=== PATIENT | female | born 1945 | race Caucasian/White ===

== ENCOUNTER 2019-06-15 15:07 | Outpatient (CLI) | payer MEDICARE | END 2019-06-15 15:08 | disposition home or self-care (01) | LOC: COV 15:07 | PROVIDERS: ATTEND Family Medicine | DX: R05 Cough (principal) | CPT/HCPCS: 81599 ==

== ENCOUNTER 2019-12-08 02:23 | Outpatient (CLI) | payer MEDICARE | END 2019-12-08 02:24 | disposition critical access hospital (66) | LOC: EMS 02:23 | PROVIDERS: ATTEND Surgery | DX: R07.89 Other chest pain (principal) | CPT/HCPCS: A0425; A0427 ==

== ENCOUNTER 2019-12-08 02:51 | Emergency (ER) | payer MEDICARE ==
--- NOTE | 2019-12-08 03:08 | ED Physician Documentation ---
PD HPI CHEST PAIN - Stated complaint Stated Complaint: CP - Chief complaint Chief Complaint: Cardiac - History obtained from History obtained from: Patient, EMS - History of Present Illness Timing - onset: Enter time (18:00), Today Timing - onset during: Exertion Timing - duration: Hours Timing - details: Intermittant Pain level max: 7 Pain level now: 1 Quality: Pain Location: Substernal Radiation: Jaw, Neck, Back Improved by: Rest, Nitro Worsened by: Exertion Associated symptoms: Nausea. No: Shortness of air, Diaphoresis, Vomiting, Feeling faint / dizzy Similar symptoms before: Has not had sx before Recently seen: Not recently seen - Additional information Additional information: BIBA. patient c/o episodic midline lower chest pain since this morning. Pain radiates to neck, jaw, and upper back. She has not had this before. She initially attributed the symptoms to some gardening she was doing, and the pain was episodic for most of the day, with distinct worsening with exertion, resolution with rest, and mild nausea but no vomiting , no dyspnea. The episodes became more frequent, onset with less exertion, and taking longer to resolve with rest. At 6 pm , the pain persisted even with rest. She eventually called an ambulance and is thus brought here via EMS. She was given SLNTG, 324mg ASA, and 1 inch NTG paste to ACW; pain decreased from seven (out of ten) to 1 en route. Review of Systems Constitutional: denies: Fever, Chills, Sweats Eyes: reports: Reviewed and negative Ears: reports: Reviewed and negative Nose: reports: Reviewed and negative Throat: reports: Reviewed and negative Cardiac: reports: Chest pain / pressure. denies: Palpitations, Pedal edema, Calf pain Respiratory: denies: Dyspnea, Cough GI: reports: Nausea. denies: Abdominal Pain, Vomiting : reports: Reviewed and negative Skin: reports: Reviewed and negative Musculoskeletal: reports: Reviewed and negative Neurologic: reports: Reviewed and negative PD PAST MEDICAL HISTORY - Past Medical History Cardiovascular: Hypertension - Past Surgical History Past Surgical History: Yes - Present Medications Home Medications: Ambulatory Orders Medication Instructions Recorded Confirmed Aspirin [Aspir 81] 81 mg PO DAILY 09/02/13 09/05/14 Hydrochlorothiazide 25 mg PO DAILY 09/02/13 09/05/14 lisinopriL [Lisinopril] 40 mg PO DAILY 09/02/13 09/05/14 Oxycodone HCl/Acetaminophen 1 - 2 each PO Q6H PRN #15 tablet 09/05/14 [Percocet 5-325 mg Tablet] - Allergies Allergies/Adverse Reactions: Allergies Allergy/AdvReac Type Severity Reaction Status Date / Time No Known Drug Allergies Allergy Verified 12/08/19 03:08 - Social History Does the pt smoke?: No Smoking Status: Never smoker Does the pt drink ETOH?: No Does the pt have substance abuse?: No - Immunizations Immunizations are current?: Yes - POLST Patient has POLST: No PD ED PE NORMAL - Vitals Vital signs reviewed: Yes - General General: Alert and oriented X 3, No acute distress, Well developed/nourished - HEENT HEENT: Moist mucous membranes - Neck Neck: Supple, no meningeal sign - Cardiac Cardiac: RRR, No murmur, No gallop, No rub - Respiratory Respiratory: No respiratory distress, Clear bilaterally - Abdomen Abdomen: Soft, Non tender - Back Back: No CVA TTP - Derm Derm: Normal color, Warm and dry - Extremities Extremities: No edema - Neuro Neuro: Alert and oriented X 3 Results - Vitals Vitals: Vital Signs - 24 hr 12/08/19 12/08/19 12/08/19 02:52 03:01 03:31 Temperature 36.7 C Heart Rate 96 99 86 Respiratory 17 20 12 Rate Blood Pressure 126/84 H 122/77 112/82 H O2 Saturation 97 97 99 12/08/19 12/08/19 12/08/19 04:01 04:30 05:00 Temperature Heart Rate 91 93 88 Respiratory 12 13 13 Rate Blood Pressure 129/86 H 129/73 120/73 O2 Saturation 99 95 99 12/08/19 12/08/19 12/08/19 05:30 06:00 07:00 Temperature Heart Rate 90 92 105 H Respiratory 22 14 19 Rate Blood Pressure 118/86 H 116/74 122/72 O2 Saturation 97 96 99 12/08/19 07:30 Temperature Heart Rate 84 Respiratory 18 Rate Blood Pressure 101/69 O2 Saturation 99 Oxygen O2 Source Room air - EKG (time done) No standard instances Rate: Rate (enter#) (96) Rhythm: NSR [place]: Normal Intervals: Normal [place] QRS: Normal Ischemia: Non specific changes (V5-V6) - Labs Labs: Laboratory Tests 12/08/19 12/08/19 12/08/19 03:00 03:00 03:00 WBC 8.7 RBC 4.67 Hgb 13.6 Hct 42.4 MCV 90.8 MCH 29.1 MCHC 32.1 RDW 13.2 Plt Count 236 MPV 8.9 Neut # (Auto) 5.9 Lymph # (Auto) 1.8 [place] # (Auto) 0.8 Eos # (Auto) 0.1 Baso # (Auto) 0.1 Absolute Nucleated RBC 0.00 Nucleated RBC % 0.0 Anti-Xa Level Sodium 140 Potassium 3.3 L Chloride 105 Carbon Dioxide 27 Anion Gap 8.0 BUN 22 H Creatinine 0.9 Estimated GFR (MDRD) 61 L Glucose 126 H Calcium 8.8 Total Bilirubin 0.7 AST 23 ALT 18 Alkaline Phosphatase 76 Troponin I High Sens 1688.0 H* Total Protein 5.9 L Albumin 3.5 Globulin 2.4 Albumin/Globulin Ratio 1.5 Lipase 25 12/08/19 12/08/19 05:40 05:40 WBC RBC Hgb Hct MCV MCH MCHC RDW Plt Count MPV Neut # (Auto) Lymph # (Auto) [place] # (Auto) Eos # (Auto) Baso # (Auto) Absolute Nucleated RBC Nucleated RBC % Anti-Xa Level 0.1 Sodium Potassium Chloride Carbon Dioxide Anion Gap BUN Creatinine Estimated GFR (MDRD) Glucose Calcium Total Bilirubin AST ALT Alkaline Phosphatase Troponin I High Sens 3112.8 H* Total Protein Albumin Globulin Albumin/Globulin Ratio Lipase - Rads (name of study) chest xray Radiology: Prelim report reviewed, See rad report PD MEDICAL DECISION MAKING - ED course Complexity details: reviewed old records, reviewed results, re-evaluated patient, considered differential, d/w patient ED course: HPI is c/w new onset angina. no acute EKG changes (specifically no ST elevations; minimal/borderline ST depression V5-V6). high sensitivity troponin 1688. Although her pain was mild during ED stay, it did wax and wane at times, further concerning for new onset/unstable angina. D/W on-call physician for [facility]. She subsequently called me back and says there are no beds available at [facility] and says patient can be transferred to nearest appropriate facility. [facility] contacted; no beds available. [facility] contacted; no beds available. I then recontacted the on-call physician at [facility]. She subsequently called [facility] and [facility] and then called me back; beds are not available at either of these facilities. She recommends ED to ED transfer to nearest appropriate facility. I subsequently spoke to the transfer center at [facility] transfer [place]. He relays to me that no beds are available but he will contact the mine technician at [facility] to consider possible transfer. I then spoke with the ED physician at [facility], Dr. Mendoza; he accepts ED to ED transfer. I subsequently spoke to immigration officer physician for [facility] (they had undergone shift change and I d/w Dr. Smith) to update that patient was accepted for ED/ED transfer and he acknowledges. I then spoke with Dr. Richardson, immigration officer cardiology for [facility], agrees patient is appropriate for transfer to [facility]; he recommends beta-eduar and thus I ordered 5mg IV lopressor. I then heard back from [facility]; I informed them that patient was now dispositioned to [facility]. Departure - Departure Disposition: 02 Transfer Acute Care Hosp Clinical Impression: Unstable angina Condition: Stable Discharge Date/Time: 12/08/19 07:50
[2019-12-08 03:12] LABS: BASOPHILS # (AUTO) 0.1 10^3/uL (0.0-0.1); BASOPHILS % (AUTO) 0.8 %; EOSINOPHILS # (AUTO) 0.1 10^3/uL (0.0-0.7); HGB - HEMOGLOBIN 13.6 g/dL (12.0-16.0); LYMPHOCYTES # (AUTO) 1.8 10^3/uL (1.5-3.5); MEAN CORPUSCULAR HEMOGLOBIN 29.1 pg (27.0-31.0); MEAN CORPUSCULAR HGB CONC 32.1 g/dL (32.0-36.0); MEAN CORPUSCULAR VOLUME 90.8 fL (81.0-99.0); MEAN PLATELET VOLUME 8.9 fL (7.9-10.8); MONOCYTES # (AUTO) 0.8 10^3/uL (0.0-1.0); MONOCYTES % (AUTO) 9.3 %; NEUTROPHILS # (AUTO) 5.9 10^3/uL (1.5-6.6); NEUTROPHILS % (AUTO) 67.6 %; PLT - PLATELET COUNT 236 10^3/uL (130-450); RED BLOOD COUNT 4.67 10^6/uL (4.20-5.40); RED CELL DISTRIBUTION WIDTH 13.2 % (12.0-15.0); WHITE BLOOD COUNT 8.7 x10^3/uL (4.8-10.8)
[2019-12-08] MEDS ORDERED: SODIUM CHLORIDE 0.9% 1,000 ML IV STA (03:17)
[2019-12-08 03:32] LABS: ALBUMIN 3.5 g/dL (3.2-5.5); ALBUMIN/GLOBULIN RATIO 1.5 (1.0-2.2); BILIRUBIN,TOTAL 0.7 mg/dL (0.2-1.0); CALCIUM 8.8 mg/dL (8.5-10.3); CREATININE 0.9 mg/dL (0.4-1.0); TOTAL PROTEIN 5.9 g/dL (6.7-8.2)
[2019-12-08] MEDS ORDERED: HEPARIN 25000UNITS/500ML (D5W) 25,000 UNIT/500 ML BAG IV STA (05:27)
[2019-12-08] MEDS ORDERED: MORPHINE 2 MG/ML CARPUJECT IVP STA (05:39)
[2019-12-08] MEDS ORDERED: METOPROLOL 5 MG/5 ML VIAL IVP STA (06:37)
[2019-12-08 07:40] VITALS: BP 101/69
--- NOTE | 2019-12-08 07:48 | XRAY Report ---
PROCEDURE: Chest 1 View X-Ray INDICATIONS: Chest pain TECHNIQUE: One view of the chest was acquired. COMPARISON: None FINDINGS: Surgical changes and devices: None. Lungs and pleura: No pleural effusions or pneumothorax. Lungs are clear. Mediastinum: Mediastinal contours appear normal. Heart size is normal. Bones and chest wall: No suspicious bony lesions. Overlying soft tissues appear unremarkable. IMPRESSION: No acute cardiopulmonary disease process. Reviewed by: Kym Funez MD, PhD on 12/08/2019 7:47 AM PDT Approved by: Kym Funez MD, PhD on 12/08/2019 7:47 AM PDT Station ID: [id number]
== END 2019-12-08 07:50 | disposition short-term general hospital (02) ==
LOC: EDUNIT# → ED 02:51
DX: I20.0 Unstable angina (principal); I49.3 Ventricular premature depolarization; I10 Essential (primary) hypertension; R79.89 Other specified abnormal findings of blood chemistry; Z79.82 Long term (current) use of aspirin
CPT/HCPCS: 36415; 71045; 80053; 83690; 84484; 85025; 85520; 93005; 96374; 96375; 99284

== ENCOUNTER 2019-12-08 07:53 | Outpatient (CLI) | payer MEDICARE | END 2019-12-08 07:54 | disposition short-term general hospital (02) | LOC: EMS 07:53 | PROVIDERS: ATTEND Surgery | DX: I21.4 Non-ST elevation (NSTEMI) myocardial infarction (principal) | CPT/HCPCS: A0425; A0426 ==

== ENCOUNTER 2020-07-24 08:41 | Outpatient (CLI) | payer MEDICARE ==
[2020-07-24 15:41] LABS: CHOL/HDL RATIO 2.6 (<4.4); CHOLESTEROL 159 mg/dL; HDL CHOLESTEROL 62 mg/dL; LDL CHOLESTEROL,CALCULATED 80 mg/dL; LDL/HDL RATIO 1.3 (<4.4); TRIGLYCERIDES 86 mg/dL; VLDL CHOLESTEROL 17 mg/dL
== END 2020-07-24 08:42 | disposition home or self-care (01) ==
LOC: LAB.S 08:41
PROVIDERS: ATTEND Internal Medicine Interventional Cardiology
DX: E78.5 Hyperlipidemia, unspecified (principal)
CPT/HCPCS: 36415; 80061; 83721

== ENCOUNTER 2020-08-02 09:50 | Outpatient (CLI) | payer MEDICARE ==
[2020-08-02 15:28] LABS: CALCIUM 9.3 mg/dL (8.5-10.3); CREATININE 0.7 mg/dL (0.4-1.0)
== END 2020-08-02 09:51 | disposition home or self-care (01) ==
LOC: LAB.S 09:50
PROVIDERS: ATTEND Internal Medicine Interventional Cardiology
DX: I50.1 Left ventricular failure, unspecified (principal); E78.5 Hyperlipidemia, unspecified; I25.10 Atherosclerotic heart disease of native coronary artery without angina pectoris
CPT/HCPCS: 36415; 80048

== ENCOUNTER 2020-10-15 15:03 | Emergency (ER) | payer MEDICARE ==
[2020-10-15 15:20] VITALS: BP 148/86
[2020-10-15 15:40] LABS: BASOPHILS # (AUTO) 0.1 10^3/uL (0.0-0.1); EOSINOPHILS # (AUTO) 0.1 10^3/uL (0.0-0.7); EOSINOPHILS % (AUTO) 1.4 %; HCT - HEMATOCRIT 42.3 % (37.0-47.0); HGB - HEMOGLOBIN 13.6 g/dL (12.0-16.0); LYMPHOCYTES # (AUTO) 1.5 10^3/uL (1.5-3.5); LYMPHOCYTES % (AUTO) 23.6 %; MEAN CORPUSCULAR HEMOGLOBIN 30.3 pg (27.0-31.0); MEAN CORPUSCULAR HGB CONC 32.2 g/dL (32.0-36.0); MEAN CORPUSCULAR VOLUME 94.2 fL (81.0-99.0); MEAN PLATELET VOLUME 8.7 fL (7.9-10.8); MONOCYTES # (AUTO) 0.5 10^3/uL (0.0-1.0); MONOCYTES % (AUTO) 8.6 %; NEUTROPHILS # (AUTO) 4.1 10^3/uL (1.5-6.6); NEUTROPHILS % (AUTO) 65.2 %; PLT - PLATELET COUNT 231 10^3/uL (130-450); RED BLOOD COUNT 4.49 10^6/uL (4.20-5.40); RED CELL DISTRIBUTION WIDTH 14.6 % (12.0-15.0); WHITE BLOOD COUNT 6.3 x10^3/uL (4.8-10.8)
[2020-10-15 15:47] LABS: INR 1.1 (0.8-1.2); PT - PROTHROMBIN TIME 12.4 secs (9.9-12.6)
[2020-10-15 15:53] LABS: ALBUMIN 4.1 g/dL (3.2-5.5); ALBUMIN/GLOBULIN RATIO 1.7 (1.0-2.2); BILIRUBIN,TOTAL 0.7 mg/dL (0.2-1.0); CALCIUM 9.3 mg/dL (8.5-10.3); CREATININE 0.7 mg/dL (0.4-1.0); POTASSIUM 3.9 mmol/L (3.5-5.0); TOTAL PROTEIN 6.5 g/dL (6.7-8.2)
[2020-10-15] MEDS: TRANEXAMIC ACID 1,000 MG/10 ML VIAL NAS STA (15:53)
--- NOTE | 2020-10-15 15:53 | ED Physician Documentation ---
History of Present Illness - Stated complaint Stated Complaint: BLEEDING GUMS - Chief complaint Chief Complaint: Heent - History obtained from History obtained from: Patient - History of Present Illness Timing: How many days ago (2) Pain level max: 0 Pain level now: 0 - Additonal information Additional information: 74-year-old female states that she has bleeding to her gum above her right frontal tooth. This is been intermittent for the past 2 days. Stops with pressure and then begins again. She is on aspirin 162 mg p.o. daily. Denies any other blood thinners. No dental pain. No facial swelling. Denies any trauma. Nothing makes it worse. Review of Systems Constitutional: denies: Fever, Chills GI: denies: Vomiting, Diarrhea Skin: denies: Rash Musculoskeletal: denies: Neck pain, Back pain PD PAST MEDICAL HISTORY - Past Medical History Cardiovascular: Hypertension - Past Surgical History Past Surgical History: Yes - Present Medications Home Medications: Ambulatory Orders Medication Instructions Recorded Confirmed Aspirin [Aspir 81] 81 mg PO DAILY 09/02/13 09/05/14 hydroCHLOROthiazide 25 mg PO DAILY 09/02/13 09/05/14 [Hydrochlorothiazide] lisinopriL [Lisinopril] 40 mg PO DAILY 09/02/13 09/05/14 Oxycodone HCl/Acetaminophen 1 - 2 each PO Q6H PRN #15 tablet 09/05/14 [Percocet 5-325 mg Tablet] - Allergies Allergies/Adverse Reactions: Allergies Allergy/AdvReac Type Severity Reaction Status Date / Time No Known Drug Allergies Allergy Verified 10/15/20 15:20 - Social History Does the pt smoke?: No Smoking Status: Never smoker Does the pt drink ETOH?: No Does the pt have substance abuse?: No - Immunizations Immunizations are current?: Yes - POLST Patient has POLST: No PD ED PE NORMAL - Vitals Vital signs reviewed: Yes - General General: Alert and oriented X 3, No acute distress - Derm Derm: Warm and dry, No rash, Other (No petechiae or bruising) - Neuro Neuro: Alert and oriented X 3 PD ED PE EXPANDED - HEENT HEENT Visual: 1 - bruising (Slight bleeding. No evidence of trauma. No loosening of the tooth. No pain. No gingival swelling) Results - Vitals Vitals: Vital Signs - 24 hr 10/15/20 15:15 Temperature 36.9 C Heart Rate 73 Respiratory 16 Rate Blood Pressure 148/86 H O2 Saturation 97 Oxygen O2 Source Room air - Labs Labs: Laboratory Tests 10/15/20 10/15/20 10/15/20 15:34 15:34 15:34 WBC 6.3 RBC 4.49 Hgb 13.6 Hct 42.3 MCV 94.2 MCH 30.3 MCHC 32.2 RDW 14.6 Plt Count 231 MPV 8.7 Neut # (Auto) 4.1 Lymph # (Auto) 1.5 [place] # (Auto) 0.5 Eos # (Auto) 0.1 Baso # (Auto) 0.1 Absolute Nucleated RBC 0.00 Nucleated RBC % 0.0 PT 12.4 INR 1.1 APTT 32.0 Sodium 140 Potassium 3.9 Chloride 103 Carbon Dioxide 28 Anion Gap 9.0 BUN 21 H Creatinine 0.7 Estimated GFR (MDRD) 81 L Glucose 104 H Calcium 9.3 Total Bilirubin 0.7 AST 22 ALT 28 Alkaline Phosphatase 96 Total Protein 6.5 L Albumin 4.1 Globulin 2.4 Albumin/Globulin Ratio 1.7 PD MEDICAL DECISION MAKING - ED course Complexity details: reviewed results, considered differential, d/w patient ED course: Unclear etiology of the bleeding. It resolved with topical TXA. It is just above tooth #8. No other bleeding in the mouth. No significant lab abnormalities. She has an appointment with her dentist tomorrow. We will have her follow-up with her dentist for further care. Patient counseled regarding signs and symptoms for which I believe and urgent re-evaluation would be necessary. Patient with good understanding of and agreement to plan and is comfortable going home at this time This document was made in part using voice recognition software. While efforts are made to proofread this document, sound alike and grammatical errors may occur. Departure - Departure Disposition: 01 Home, Self Care Clinical Impression: Bleeding gums Condition: Good Instructions: Gingivitis Follow-Up: Wilfrid Salinas MD [Primary Care Provider] - Comments: Follow-up with your dentist tomorrow for further evaluation. The cause of your symptoms is unclear. Your blood testing is normal today. If the bleeding continues, hold pressure until it resolves. Discharge Date/Time: 10/15/20 16:56
== END 2020-10-15 16:56 | disposition home or self-care (01) ==
LOC: ED 15:03
DX: K06.8 Other specified disorders of gingiva and edentulous alveolar ridge (principal); Z79.82 Long term (current) use of aspirin
CPT/HCPCS: 36415; 80053; 85025; 85610; 85730; 99283

== ENCOUNTER 2020-10-18 09:39 | Outpatient (CLI) | payer MEDICARE ==
--- NOTE | 2020-10-18 14:02 | DEXA Report ---
PROCEDURE: Dexa Spine and/or Hip INDICATIONS: OSTEOPOROSIS SCREENING TECHNIQUE: Dual energy x-ray absorptiometry (DXA) was performed on a Net[employer] System. Regions measur ed are the AP Spine, femoral neck, and if needed forearm. COMPARISON: None. FINDINGS: Lumbar Spine: Bone Mineral Density 1.198 g/cm/cm,T score 0.2, normal Left Hip: Bone Mineral Density 0.682 g/cm/cm,T score -2.6, osteochondrosis Left Femoral Neck: Bone Mineral Density 0.691 g/cm/cm, T score 2.5, osteoporosis (T score greater or equal to -1.0: NORMAL) (T score from -1.1 to -2.4: OSTEOPENIA) (T score less than or equal to -2.5 to: OSTEOPOROSIS) Impression: Osteoporosis within left hip and femoral neck. Patients with diagnosis of osteoporosis or osteopenia should have regular bone mineral density assess ment. For those eligible for Medicare, routine testing is allowed once every 2 years. Testing frequ ency can be increased for patients who have rapidly progressing disease or for those who are receivin g medical therapy to restore bone mass. Reviewed by: Moraima Mejia MD on 10/18/2020 2:00 PM PDT Approved by: Moraima Mejia MD on 10/18/2020 2:00 PM PDT Station ID: [id number]
== END 2020-10-18 09:40 | disposition home or self-care (01) ==
LOC: DI 09:39
PROVIDERS: ATTEND Internal Medicine
DX: Z13.820 Encounter for screening for osteoporosis (principal); M81.0 Age-related osteoporosis without current pathological fracture

== ENCOUNTER 2021-10-03 12:59 | Outpatient (CLI) | payer MEDICARE ==
[2021-10-03 15:19] LABS: CALCIUM 9.7 mg/dL (8.5-10.3); CREATININE 0.7 mg/dL (0.4-1.0); POTASSIUM 4.5 mmol/L (3.5-5.0)
== END 2021-10-03 13:00 | disposition home or self-care (01) ==
LOC: LAB.S 12:59
PROVIDERS: ATTEND Internal Medicine Interventional Cardiology
DX: I50.1 Left ventricular failure, unspecified (principal)
CPT/HCPCS: 36415; 80048

== ENCOUNTER 2021-11-07 11:52 | Outpatient (CLI) | payer MEDICARE | END 2021-11-07 11:53 | disposition home or self-care (01) | LOC: LAB.S 11:52 | PROVIDERS: ATTEND Ophthalmology | DX: R51.9 Headache, unspecified (principal) | CPT/HCPCS: 36415; 85651; 86140 ==

== ENCOUNTER 2022-10-28 07:23 | Emergency (ER) | payer MEDICARE ==
[2022-10-28] MEDS ORDERED: SODIUM CHLORIDE 0.9% 500 ML IV STA (08:02)
[2022-10-28 08:11] LABS: BASOPHILS # (AUTO) 0.1 10^3/uL (0.0-0.1); BASOPHILS % (AUTO) 0.7 %; EOSINOPHILS # (AUTO) 0.1 10^3/uL (0.0-0.7); EOSINOPHILS % (AUTO) 1.6 %; HCT - HEMATOCRIT 46.2 % (37.0-47.0); HGB - HEMOGLOBIN 14.6 g/dL (12.0-16.0); LYMPHOCYTES % (AUTO) 11.2 %; MEAN CORPUSCULAR HEMOGLOBIN 29.4 pg (27.0-31.0); MEAN CORPUSCULAR HGB CONC 31.6 g/dL (32.0-36.0); MEAN CORPUSCULAR VOLUME 93.1 fL (81.0-99.0); MEAN PLATELET VOLUME 8.9 fL (7.9-10.8); MONOCYTES # (AUTO) 0.6 10^3/uL (0.0-1.0); MONOCYTES % (AUTO) 6.7 %; NEUTROPHILS # (AUTO) 7.2 10^3/uL (1.5-6.6); NEUTROPHILS % (AUTO) 79.6 %; PLT - PLATELET COUNT 242 10^3/uL (130-450); RED BLOOD COUNT 4.96 10^6/uL (4.20-5.40); RED CELL DISTRIBUTION WIDTH 13.6 % (12.0-15.0)
[2022-10-28 08:26] LABS: ALBUMIN 3.9 g/dL (3.2-5.5); ALBUMIN/GLOBULIN RATIO 1.6 (1.0-2.2); BILIRUBIN,TOTAL 0.7 mg/dL (0.2-1.0); CALCIUM 9.7 mg/dL (8.5-10.3); CREATININE 0.7 mg/dL (0.6-1.3); POTASSIUM 3.9 mmol/L (3.5-4.5); TOTAL PROTEIN 6.3 g/dL (6.4-8.9)
--- NOTE | 2022-10-28 08:47 | XRAY Report ---
PROCEDURE: Chest 1 View X-Ray INDICATIONS: weakness/falls TECHNIQUE: One view of the chest was acquired. COMPARISON: Chest x-ray 12/08/2019 FINDINGS: Surgical changes and devices: Sternal wires. Lungs and pleura: No pleural effusions or pneumothorax. Lungs are clear. Lungs are hyperinflated with flattening of the diaphragms, suggestive of COPD. Mediastinum: Mediastinal contours appear normal. Heart size is normal. Bones and chest wall: No suspicious bony lesions. Overlying soft tissues appear unremarkable. IMPRESSION: No acute cardiopulmonary process. Reviewed by: Moraima Mejia MD on 10/28/2022 8:46 AM PDT Approved by: Moraima Mejia MD on 10/28/2022 8:46 AM PDT Station ID: [id number]
--- NOTE | 2022-10-28 09:01 | CT Report ---
PROCEDURE: HEAD WO INDICATIONS: falls/head injury TECHNIQUE: Noncontrast 4.5 mm thick angled axial sections acquired from the foramen magnum to the vertex. For r adiation dose reduction, the following was used: automated exposure control, adjustment of mA and/or kV according to patient size. COMPARISON: None. FINDINGS: Image quality: Excellent. The ventricular system and cortical sulci demonstrate atrophy, consistent for patient's stated age. There are areas of hypodensity in the periventricular and subcortical white matter. There is no acut e intra or extra-axial fluid collection. No acute hemorrhage, mass lesion or midline shift. Brainst em is unremarkable. Globes are symmetrical. Sinuses are aerated. Osseous structures are intact. IMPRESSION: 1. No acute intracranial process. 2. Mild to moderate atrophy and chronic microvascular ischemic changes. Reviewed by: Moraima Mejia MD on 10/28/2022 8:59 AM PDT Approved by: Moraima Mejia MD on 10/28/2022 8:59 AM PDT Station ID: [id number]
[2022-10-28] MEDS ORDERED: MECLIZINE 12.5 MG TABLET PO STA (10:33)
--- NOTE | 2022-10-28 10:42 | ED Physician Documentation ---
History of Present Illness - Stated complaint Stated Complaint: GLF,BODY PX - Chief complaint Chief Complaint: Neuro - History obtained from History obtained from: Patient - Additonal information Additional information: Patient is a 76-year-old female with a history of disembarkment syndrome presenting for evaluation of feeling dizziness since this weekend with worsening symptoms this morning causing several falls. Patient states that she feels like she is losing her balance Causing her to fall 3 times today when standing. She denies feeling lightheaded. She describes her feelings as being on a boat. She denies a headache. She has hit her head twice. No LOC. Does not take a blood thinner. She reports in the past when she had disembarkment syndrome She went to physical therapy where they performed the Valarie maneuver which helped with her symptoms. She was never put on medications for it. She does report recent feelings of fatigue, subjective fever, congestion. Denies dysuria. Denies chest pain or shortness of air. She has reported some discomfort in the left buttock since the weekend and saw her primary care provider yesterday who examined her for the pain as well as the dizziness. PCP did not feel that it was her hip that was bothering her was considering giving her a course of steroids for presumed pinched nerve. Labs were also ordered but patient fell this morning prior to being able to get her labs done. She reports being able to ambulate with a walker. Review of Systems Constitutional: denies: Fever Cardiac: denies: Chest pain / pressure Respiratory: denies: Dyspnea GI: denies: Abdominal Pain Neurologic: reports: Generalized weakness, Head injury PD PAST MEDICAL HISTORY - Past Medical History Cardiovascular: Hypertension - Past Surgical History Past Surgical History: Yes - Present Medications Home Medications: Ambulatory Orders Medication Instructions Recorded Confirmed Aspirin [Aspir 81] 81 mg PO DAILY 09/02/13 09/05/14 hydroCHLOROthiazide 25 mg PO DAILY 09/02/13 09/05/14 [Hydrochlorothiazide] lisinopriL [Lisinopril] 40 mg PO DAILY 09/02/13 09/05/14 Oxycodone HCl/Acetaminophen 1 - 2 each PO Q6H PRN #15 tablet 09/05/14 [Percocet 5-325 mg Tablet] Meclizine HCl [Motion Sickness] 25 mg PO Q6H PRN #20 tablet 10/28/22 Ondansetron Odt [Zofran] 4 mg TL Q6H PRN #10 tablet 10/28/22 - Allergies Allergies/Adverse Reactions: Allergies Allergy/AdvReac Type Severity Reaction Status Date / Time No Known Drug Allergies Allergy Verified 10/28/22 07:43 - Social History Does the pt smoke?: No Smoking Status: Never smoker Does the pt drink ETOH?: No Does the pt have substance abuse?: No - Immunizations Immunizations are current?: Yes - POLST Patient has POLST: No PD ED PE NORMAL - General General: Alert and oriented X 3, No acute distress, Well developed/nourished - HEENT HEENT: Atraumatic, PERRL, EOMI, Moist mucous membranes, Pharynx benign, Other (No nystagmus at rest. 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, No motor deficit, No sensory deficit, Normal speech, Other (Normal [id number] bilaterally) Results - Vitals Vitals: Vital Signs - 24 hr 10/28/22 10/28/22 10/28/22 09:49 10:11 11:00 Temperature 36.8 C 36.9 C Heart Rate 70 73 Heart Rate [ 78 Sitting] Heart Rate [ 85 Standing] Heart Rate [ 72 Supine] Respiratory 12 18 Rate Blood Pressure 166/75 H 160/78 H Blood Pressure 171/88 H [Sitting] Blood Pressure 153/95 H [Standing] Blood Pressure 160/68 H [Supine] O2 Saturation 97 100 Oxygen O2 Source Room air - EKG (time done) 0810 EKG releavant findings:: EKG personally interpreted by author of this note. Relevant findings are: Rate 74, normal sinus rhythm, motion artifact in V5 and V6 but no STEMI Rate: Rate (enter#) (74) Rhythm: NSR Ischemia: No: ST elevation c/w ischemia - Labs Labs: Laboratory Tests 10/28/22 10/28/22 10/28/22 08:06 08:06 09:45 WBC 9.0 RBC 4.96 Hgb 14.6 Hct 46.2 MCV 93.1 MCH 29.4 MCHC 31.6 L RDW 13.6 Plt Count 242 MPV 8.9 Neut # (Auto) 7.2 H Lymph # (Auto) 1.0 L [place] # (Auto) 0.6 Eos # (Auto) 0.1 Baso # (Auto) 0.1 Absolute Nucleated RBC 0.00 Nucleated RBC % 0.0 Sodium 140 Potassium 3.9 Chloride 105 Carbon Dioxide 32 Anion Gap 3.0 L BUN 13 Creatinine 0.7 Estimated GFR (MDRD) 81 L Glucose 105 H Calcium 9.7 Total Bilirubin 0.7 AST 18 ALT 16 Alkaline Phosphatase 94 Total Protein 6.3 L Albumin 3.9 Globulin 2.4 Albumin/Globulin Ratio 1.6 Lipase 19 Urine Color Urine Clarity Urine pH Ur Specific [place] Urine Protein Urine Glucose (UA) Urine Ketones Urine Occult Blood Urine Nitrite Urine Bilirubin Urine Urobilinogen Ur Leukocyte Esterase Ur Microscopic Review Urine Culture Comments Nasal Adenovirus (PCR) NOT DETECTED Nasal B. parapertussis DNA (PCR) NOT DETECTED Nasal Coronavir 229E PCR NOT DETECTED Nasal Coronavir HKU1 PCR NOT DETECTED Nasal Coronavir NL63 PCR NOT DETECTED Nasal Coronavir OC43 PCR NOT DETECTED Nasal Enterovir/Rhinovir PCR NOT DETECTED Nasal Influenza B PCR NOT DETECTED Nasal Influenza A PCR NOT DETECTED Nasal Parainfluen 1 PCR NOT DETECTED Nasal Parainfluen 2 PCR NOT DETECTED Nasal Parainfluen 3 PCR NOT DETECTED Nasal Parainfluen 4 PCR NOT DETECTED Nasal RSV (PCR) NOT DETECTED Nasal B.pertussis DNA PCR NOT DETECTED Nasal C.pneumoniae (PCR) NOT DETECTED Alberto Human Metapneumo PCR NOT DETECTED Nasal M.pneumoniae (PCR) NOT DETECTED Nasal SARS-CoV-2 (PCR) NOT DETECTED 10/28/22 10:15 WBC RBC Hgb Hct MCV MCH MCHC RDW Plt Count MPV Neut # (Auto) Lymph # (Auto) [place] # (Auto) Eos # (Auto) Baso # (Auto) Absolute Nucleated RBC Nucleated RBC % Sodium Potassium Chloride Carbon Dioxide Anion Gap BUN Creatinine Estimated GFR (MDRD) Glucose Calcium Total Bilirubin AST ALT Alkaline Phosphatase Total Protein Albumin Globulin Albumin/Globulin Ratio Lipase Urine Color YELLOW Urine Clarity CLEAR Urine pH 7.0 Ur Specific [place] 1.010 Urine Protein NEGATIVE Urine Glucose (UA) NEGATIVE Urine Ketones NEGATIVE Urine Occult Blood NEGATIVE Urine Nitrite NEGATIVE Urine Bilirubin NEGATIVE Urine Urobilinogen 0.2 (NORMAL) Ur Leukocyte Esterase NEGATIVE Ur Microscopic Review NOT INDICATED Urine Culture Comments NOT INDICATED Nasal Adenovirus (PCR) Nasal B. parapertussis DNA (PCR) Nasal Coronavir 229E PCR Nasal Coronavir HKU1 PCR Nasal Coronavir NL63 PCR Nasal Coronavir OC43 PCR Nasal Enterovir/Rhinovir PCR Nasal Influenza B PCR Nasal Influenza A PCR Nasal Parainfluen 1 PCR Nasal Parainfluen 2 PCR Nasal Parainfluen 3 PCR Nasal Parainfluen 4 PCR Nasal RSV (PCR) Nasal B.pertussis DNA PCR Nasal C.pneumoniae (PCR) Alberto Human Metapneumo PCR Nasal M.pneumoniae (PCR) Nasal SARS-CoV-2 (PCR) PD Medical Decision Making - ED course Complexity details: reviewed results, re-evaluated patient, d/w patient, d/w family (daughter) ED course: Patient is a 76-year-old female presenting for evaluation of dizziness with falls this morning. Reports having a history of vertigo related to disembark meant syndrome years ago and was familiar with the Valarie maneuver but was concerned about trying it on herself again this morning. She did hit her head. No focal deficits noted. CT head was obtained which I reviewed and is negative for any intracranial hemorrhage. CBC, chemistries and urine analysis were obtained and reviewed and without significant findings. Her urine is negative for infection. Her chest x-ray is clear. Respiratory swab is negative. + Tim Hallpike. No other findings to suggest central process. Feels better with meclizine and Valarie maneuver. Pt counseled on need for follow up with PCP as well as concerning symptoms to return for. 1220 - Feeling better after Valarie maneuver and meclizine. Departure - Departure Disposition: 01 Home, Self Care Clinical Impression: Peripheral vertigo Condition: Stable Instructions: ED Vertigo Unspecified Follow-Up: Wilfrid Salinas MD [Provider Admit Priv/Credential] - Prescriptions: Meclizine HCl [Motion Sickness] 25 mg PO Q6H PRN #20 tablet PRN Reason: Dizziness Ondansetron Odt [Zofran] 4 mg TL Q6H PRN #10 tablet PRN Reason: Nausea / Vomiting Comments: You have been evaluated for dizziness and several falls today. I see no injuries or fractures from your falls. Your labs are also reassuring. I suspect that your symptoms are likely related to vertigo from an issue with your inner ear. I would continue with the Valarie maneuvers 3 times a day. I have also sent prescriptions for meclizine and an antinausea medications to [facility] in [place]. I would recommend close follow-up with your primary care provider. If your symptoms or not improving or you develop any worsening symptoms please return to the emergency department. Forms: PCP List Discharge Date/Time: 10/28/22 12:42
[2022-10-28 10:54] LABS: B. PARAPERTUSSIS- RESP PCR PAN NOT DETECTED; B. PERTUSSIS- RESP PCR PANEL NOT DETECTED; C. PNEUMONIAE- RESP PCR PANEL NOT DETECTED; CORONAVIRUS 229E-RESP PCR NOT DETECTED; CORONAVIRUS HKU1-RESP PCR NOT DETECTED; CORONAVIRUS NL63-RESP PCR NOT DETECTED; CORONAVIRUS OC43-RESP PCR NOT DETECTED; HUMAN METAPNEUMOVIRUS NOT DETECTED; INFLUENZA A- RESP PCR PANEL NOT DETECTED; INFLUENZA B - RESP PCR PANEL NOT DETECTED; M. PNEUMONIAE- RESP PCR PANEL NOT DETECTED; PARAINFLUENZA VIRUS 1 NOT DETECTED; PARAINFLUENZA VIRUS 2 NOT DETECTED; PARAINFLUENZA VIRUS 3 NOT DETECTED; PARAINFLUENZA VIRUS 4 NOT DETECTED; RHINOVIRUS/ENTEROVIRUS NOT DETECTED; RSV- RESP PCR PANEL NOT DETECTED; SARS-CoV-2 -RESP PCR PANEL NOT DETECTED
[2022-10-28 11:14] LABS: BILIRUBIN,URINE NEGATIVE (NEGATIVE); GLUCOSE, URINE (UA) NEGATIVE (NEGATIVE); KETONES,URINE (UA) NEGATIVE (NEGATIVE); LEUKOCYTE ESTERASE, URINE NEGATIVE (NEGATIVE); NITRITE,URINE NEGATIVE (NEGATIVE); OCCULT BLOOD,URINE NEGATIVE (NEGATIVE); PROTEIN,URINE NEGATIVE (NEGATIVE); UROBILINOGEN,URINE 0.2 (NORMAL) E.U./dL (NORMAL)
[2022-10-28 11:15] LABS: CLARITY,URINE CLEAR (CLEAR)
[2022-10-28 11:17] VITALS: BP 160/78; O2SAT 100
== END 2022-10-28 12:42 | disposition home or self-care (01) ==
LOC: ED 07:23
DX: H81.399 Other peripheral vertigo, unspecified ear (principal); Z20.822 Contact with and (suspected) exposure to COVID-19; I10 Essential (primary) hypertension; Z79.82 Long term (current) use of aspirin; Z79.899 Other long term (current) drug therapy
CPT/HCPCS: 36415; 70450; 71045; 80053; 81003; 83690; 85025; 87633; 93005; 99284; A9270; 81001; 87086

== ENCOUNTER 2022-12-09 09:34 | Outpatient (CLI) | payer MEDICARE ==
--- NOTE | 2022-12-09 12:27 | DEXA Report ---
PROCEDURE: Dexa Spine and/or Hip INDICATIONS: MENOPAUSAL TECHNIQUE: Dual energy x-ray absorptiometry (DXA) was performed on a [facility]. Regions measur ed are the AP Spine, femoral neck, and if needed forearm. COMPARISON: 10/18/2020 FINDINGS: Lumbar Spine: Bone Mineral Density 1.257 g/cm/cm,T score 0.6. Since the most recent prior study, there has been a statistically significant increase in bone mineral density by 4.9 percent. Left Femoral Neck: Bone Mineral Density 0.719 g/cm/cm, T score -2.3. Left Hip: Bone Mineral Density 0.711 g/cm/cm,T score -2.4. There has been no statistically significant change i n bone mineral density since the prior study. (T score greater or equal to -1.0: NORMAL) (T score from -1.1 to -2.4: OSTEOPENIA) (T score less than or equal to -2.5 to: OSTEOPOROSIS) Impression: By WHO criteria, this patient has low bone density (osteopenia). Interval statistical increase in bone minteral density of the lumbar spine. No statistical interval c hange in bone minteral density of the hip. Patients with diagnosis of osteoporosis or osteopenia should have regular bone mineral density assess ment. For those eligible for Medicare, routine testing is allowed once every 2 years. Testing frequ ency can be increased for patients who have rapidly progressing disease or for those who are receivin g medical therapy to restore bone mass. Reviewed by: Gualberto Quan on 12/09/2022 12:25 PM PDT Approved by: Gualberto Quan on 12/09/2022 12:25 PM PDT Station ID: [id number]
== END 2022-12-09 09:35 | disposition home or self-care (01) ==
LOC: DI 09:34
PROVIDERS: ATTEND Internal Medicine
DX: N95.8 Other specified menopausal and perimenopausal disorders (principal); M85.80 Other specified disorders of bone density and structure, unspecified site

== ENCOUNTER 2023-02-03 14:34 | Outpatient (CLI) | payer MEDICARE ==
--- NOTE | 2023-02-03 17:01 | XRAY Report ---
PROCEDURE: Lumbar Spine 2 View INDICATIONS: LOW BACK PAIN TECHNIQUE: 3 views of the lumbar spine were acquired. COMPARISON: None. FINDINGS: Bones: 5 [id number] vertebrae are present. Grade 1 anterolisthesis of L4 on L5 due to facet art hrosis. No vertebral body compression fractures. No suspicious bony lesions. Convex left curvature . Moderate disc height loss at L3-4. Mild disc height loss at remaining levels. Facet arthrosis L3-S1 . Soft tissues: Overlying bowel gas pattern is normal. No suspicious soft tissue calcifications. IMPRESSION: Multilevel degenerative disease and facet arthrosis. Reviewed by: Gualberto Quan on 02/03/2023 4:59 PM PST Approved by: Gualberto Quan on 02/03/2023 4:59 PM PST Station ID: [id number]
== END 2023-02-03 14:35 | disposition home or self-care (01) ==
LOC: DI.S 14:34
PROVIDERS: ATTEND Internal Medicine
DX: M47.816 Spondylosis without myelopathy or radiculopathy, lumbar region (principal); M51.36 Other intervertebral disc degeneration, lumbar region

== ENCOUNTER 2023-03-07 07:00 | Outpatient (CLI) | payer MEDICARE | END 2023-03-07 23:59 | disposition home or self-care (01) | LOC: LAB.S 07:00 | PROVIDERS: ATTEND Physician Assistant Medical | DX: J02.9 Acute pharyngitis, unspecified (principal) | CPT/HCPCS: 87070 ==